=== PATIENT | female | born 1950 | race Caucasian/White ===

== ENCOUNTER → 2016-12-29 | Outpatient (CLI) | payer BC ==
[~2016-12-29] MED LIST: CALCTAB5 PO; CHOL100010 PO; GABA-113 PO; IBUP-1050 PO; MGN PO; MULT-513 PO; POTA20TA16 PO; [UNRECOGNIZED DRUG - OTHER]
== END | disposition home or self-care (01) ==
LOC: C.PAPS 15:51
PROVIDERS: ATTEND Obstetrics & Gynecology
DX: Z01.419 Encounter for gynecological examination (general) (routine) without abnormal findings (principal)

== ENCOUNTER → 2017-02-21 | Outpatient (CLI) | payer BC ==
[~2017-02-21] MED LIST changes: +CALC600T37 PO; +CHOL1000 PO
--- NOTE | 2017-02-21 15:32 | DIAGNOSTIC IMAGING REPORT ---
RIGHT HIP 2 VIEWS CLINICAL HISTORY: Right hip and buttock pain. FINDINGS: AP and frog-leg views of the right hip are obtained. No prior studies are available for comparison at the time of dictation. The skeletal structures are osteopenic. No fracture is seen in the right hip or the visualized right hemipelvis. There is only minimal arthritic change in the right hip. Sclerotic change is noted in the sacroiliac joints. The overlying soft tissues are within normal limits. Phleboliths are identified in the pelvis. IMPRESSION: Osteopenia and mild degenerative change as above. No acute bony abnormality is seen. Electronically signed by: Albaro Zhou M.D. 02/21/2017 3:30 PM Dictated Date/Time: 02/21/2017 3:29 PM
== END | disposition home or self-care (01) ==
LOC: C.RAD1850 15:20
PROVIDERS: ATTEND Physician Assistant
DX: M79.1 Myalgia (principal)

== ENCOUNTER → 2017-04-16 | Outpatient (CLI) | payer BC ==
--- NOTE | 2017-04-16 10:41 | DIAGNOSTIC IMAGING REPORT ---
LUMBAR SPINE MRI HISTORY: Back pain radiculopathy TECHNIQUE: Multiplanar multisequence MRI of the lumbar spine was performed without the use of contrast. COMPARISON: None. FINDINGS: For the purpose of the report the L5-S1 disc space will be located on axial image 27 of 30. Moderate degenerative disc change throughout the entire lumbar region. L1-L2: No significant central canal or neural foraminal narrowing. L2-L3: No significant central canal or neural foraminal narrowing. L3-L4: Moderate multifactorial spinal stenosis. Broad-based bulging disc. Hypertrophic change posterior elements. Moderate narrowing of the neuroforamina bilaterally. L4-L5: Mild multifactorial narrowing of the spinal canal. Mild narrowing right neuroforamina. L5-S1: Broad-based bulging disc. Minimal impact anterior thecal sac. Minimal narrowing neuroforamina bilaterally. IMPRESSION: 1. Moderate multifactorial spinal stenosis L3-L4. 2. Mild multifactorial spinal stenosis L4-L5. 3. Mild broad-based disc bulge L5-S1. Electronically signed by: Quintin Pedraza M.D. 04/16/2017 10:40 AM Dictated Date/Time: 04/16/2017 10:37 AM
== END | disposition home or self-care (01) ==
LOC: C.MRI 09:28
PROVIDERS: ATTEND Internal Medicine
DX: M54.30 Sciatica, unspecified side (principal); M99.73 Connective tissue and disc stenosis of intervertebral foramina of lumbar region

== ENCOUNTER → 2017-06-28 | Day surgery (SDC) | payer BC ==
[2017-06-01 15:03] VITALS: Ht 152.4 cm; Wt 58.2 kg
[~2017-06-28] VITALS: Ht 152.4 cm; Wt 58.2 kg
[~2017-06-28] MED LIST changes: +IOPAMIDOL INJ 61% 15 ML VIAL ONE; +LIDOCAINE HCL 1% MPF 5 ML VIAL ONE; -MGN PO; -POTA20TA16 PO; +SODIUM CHLORIDE 0.9% INJ 10 ML VIAL ONE
--- NOTE | 2017-06-28 14:06 | History & Physical Bridge - [place] ---
H&P Re-Evaluation Bridge Note: I have examined the patient, reviewed the History & Physical and in the interval since the performance of the History & Physical I have noted the following changes of clinical significance: No changes noted
[2017-06-28 14:33] VITALS: TEMP 36.6
--- NOTE | 2017-06-28 14:41 | Discharge Instructions ---
Discharge Instructions Date of Service Jun 28, 2017. Visit Reason for Visit: Lumbar Radiculopathy Discharge Discharge Diagnosis / Problem: right leg pain Discharge Goals Goal(s): Decrease discomfort, Improve function Medications Stopped Medications Name(s): ibuprofen stopped. last dose on sunday. Activity Recommendations Activity Limitations: resume your previous activity Anesthesia . Post Anesthesia Instructions: If you have had General Anesthesia or IV Sedation: * Do not drive today. * Resume driving when surgeon permits. * Do not make important decisions or sign legal documents today. * Call surgeon for: 1. Temperature elevations greater than 101 degrees F. 2. Uncontrollable pain. 3. Excessive bleeding. 4. Persistent nausea and vomiting. 5. Medication intolerance (nausea, vomiting or rash). * For nausea and vomiting use only clear liquids such as: tea, soda, bouillon until nausea subsides, then gradually increase diet as tolerated. * If you have any concerns or questions, call your surgeon's office. If physician is unavailable and it is an emergency, call 911 or go to the nearest emergency room. . Diet Recommendations Recommended Home Diet: resume previous diet Procedures Procedures Performed: LUMBAR EPIDURAL STEROID INJECTION Pending Studies Studies pending at discharge: no Medical Emergencies . Who to Call and When: Medical Emergencies: If at any time you feel your situation is an emergency, please call 911 immediately. . Non-Emergent Contact Non-Emergency issues call your: Specialist . . "Provider Documentation" section prepared by Darrius Florez. .
[2017-06-28 14:48] VITALS: BP 133/76; PULSE 69; O2SAT 96
--- NOTE | 2017-06-28 15:01 | OPERATIVE REPORT ---
DATE OF OPERATION: 06/28/2017 PREOPERATIVE DIAGNOSIS: Foraminal stenosis, L5-S1 with a right L5 radiculopathy. POSTOPERATIVE DIAGNOSIS: Same. PROCEDURE: Right paramedian L5-S1 intralaminar epidural steroid injection under fluoroscopic guidance. SURGEON: Dr. Darrius Florez. INDICATIONS: The patient is a 67-year-old white female who presents today for an epidural injection. She has had pain for a number of months since January following the classic right L5 dermatomal distribution that has not responded to physical therapy and oral steroids. She presents today for an epidural injection to provide her with relief as the pain is impacting upon her function. PHYSICAL EXAMINATION: Pleasant female seated comfortably in no apparent distress. She has some sensitivity to palpation of her right sciatic notch. Left was nontender. No limitations with forward flexion or extension. She demonstrated pain inhibition with straight leg testing of her right lower extremity and had intact sensation. CONSENT: Verbal and written consent was obtained from the patient. Risks and benefits were reviewed. Risks include but are not limited to lumbar epidural abscess, epidural hematoma, allergic reaction, dural puncture. The patient wishes to proceed. PROCEDURE: The patient was taken back to the special procedures room of [facility]. She was maintained in a prone position. Backside was cleansed with Betadine x3 and a dry sterile dressing was applied. Fluoroscope was used to identify the L5-S1 intralaminar space. Overlying skin on the right side was anesthetized with 4 mL of lidocaine 1% with a 25 gauge 1.5-inch needle. A 22-gauge 3-1/2 inch Tuohy needle was then directed down towards the intralaminar space. It was advanced under lateral fluoroscopic guidance and loss of resistance was noticed at a depth of 6.5 cm. Isovue-300 contrast 1 mL was injected in which demonstrated epidural uptake pattern which was confirmed and then she underwent injection after negative aspiration of 40 mg of Depo-Medrol and 4 mL of preservative free sodium chloride. Injection was well tolerated. DISPOSITION: 1. The patient is taken out into the discharge recovery area where she will be discharged home once discharge criteria have been met. 2. Follow up in the [facility] office in 2-4 weeks. I attest to the content of the Intraoperative Record and any orders documented therein. Any exception s are noted below.
== END | disposition home or self-care (01) ==
LOC: X.SURG 13:25
PROVIDERS: ATTEND Physical Medicine & Rehabilitation
DX: M48.07 Spinal stenosis, lumbosacral region (principal)

== ENCOUNTER → 2017-08-23 | Day surgery (SDC) | payer BC ==
[2017-08-07 14:00] VITALS: Ht 152.4 cm; Wt 58.2 kg
[~2017-08-23] VITALS: Ht 152.4 cm; Wt 58.2 kg
[~2017-08-23] MED LIST changes: -CALCTAB5 PO; -CHOL100010 PO; -GABA-113 PO
[2017-08-23 14:52] VITALS: TEMP 37.5
--- NOTE | 2017-08-23 14:56 | Discharge Instructions ---
Discharge Instructions Date of Service Aug 23, 2017. Visit Reason for Visit: Lumbar Radiculopathy Discharge Discharge Diagnosis / Problem: left leg pain Discharge Goals Goal(s): Decrease discomfort, Improve function Activity Recommendations Activity Limitations: resume your previous activity Anesthesia . Post Anesthesia Instructions: If you have had General Anesthesia or IV Sedation: * Do not drive today. * Resume driving when surgeon permits. * Do not make important decisions or sign legal documents today. * Call surgeon for: 1. Temperature elevations greater than 101 degrees F. 2. Uncontrollable pain. 3. Excessive bleeding. 4. Persistent nausea and vomiting. 5. Medication intolerance (nausea, vomiting or rash). * For nausea and vomiting use only clear liquids such as: tea, soda, bouillon until nausea subsides, then gradually increase diet as tolerated. * If you have any concerns or questions, call your surgeon's office. If physician is unavailable and it is an emergency, call 911 or go to the nearest emergency room. . Diet Recommendations Recommended Home Diet: resume previous diet Procedures Procedures Performed: LUMBAR EPIDURAL STEROID INJECTION Pending Studies Studies pending at discharge: no Medical Emergencies . Who to Call and When: Medical Emergencies: If at any time you feel your situation is an emergency, please call 911 immediately. . Non-Emergent Contact Non-Emergency issues call your: Specialist . . "Provider Documentation" section prepared by Darrius Florez. .
[2017-08-23 15:06] VITALS: BP 127/80; PULSE 65; O2SAT 96
--- NOTE | 2017-08-23 15:17 | OPERATIVE REPORT ---
DATE OF OPERATION: 08/23/2017 PREOPERATIVE DIAGNOSIS: Lumbar foraminal stenosis with a left L5 radiculopathy. POSTOPERATIVE DIAGNOSIS: Same. PROCEDURE: Left paramedian L5-S1 intralaminar epidural steroid injection under fluoroscopic guidance. INDICATIONS: The patient is a 67-year-old white female who underwent an epidural steroid injection and had about 30% relief. The idea to do a second injection to try to stack the effectiveness of the 2 injections together. She presents for an epidural injection to provide her with left L5 radiculopathy pain. PHYSICAL EXAMINATION: Pleasant female seated comfortably. She has some sensitivity to palpation of the sciatic notch, negative seated straight leg raises. No focal weakness. CONSENT: Verbal and written consent was obtained from the patient. Risks and benefits were reviewed. Risks include but are not limited to epidural abscess, epidural hematoma, allergic reaction, dural puncture. The patient wishes to proceed. DESCRIPTION OF PROCEDURE: The patient was taken back to the special procedures room of the [facility] where she was maintained in a prone position. Backside was cleansed with Betadine x3 and a dry sterile dressing was applied. Fluoroscope was used to identify the L5-S1 intralaminar space. Overlying skin on the left side was anesthetized with 4 mL of lidocaine 1% with a 25 gauge 1.5-inch needle. A 22-gauge 3-1/2 inch Tuohy needle was then directed down towards the intralaminar space. It was advanced under lateral fluoroscopic guidance and loss of resistance was noted at a depth of 5.5 cm. Isovue-300 contrast 1 mL was injected in which demonstrated epidural uptake pattern. She then after which was confirmed with both AP and lateral views. She then underwent injection after negative aspiration of 40 mg of Depo-Medrol and 4 mL of preservative free sodium chloride. Injection was well tolerated. DISPOSITION: 1. The patient is taken out into the discharge recovery area where she will be discharged home once discharge criteria have been met. 2. Follow up in the [facility] office in 2-4 weeks. I attest to the content of the Intraoperative Record and any orders documented therein. Any exception s are noted below.
== END | disposition home or self-care (01) ==
LOC: X.SURG 13:55
PROVIDERS: ATTEND Physical Medicine & Rehabilitation
DX: M48.061 Spinal stenosis, lumbar region without neurogenic claudication (principal); M54.16 Radiculopathy, lumbar region

== ENCOUNTER → 2017-12-25 | Outpatient (CLI) | payer BC ==
[~2017-12-25] MED LIST changes: +GABA-112 PO; -IOPAMIDOL INJ 61% 15 ML VIAL ONE; -LIDOCAINE HCL 1% MPF 5 ML VIAL ONE; -SODIUM CHLORIDE 0.9% INJ 10 ML VIAL ONE
== END | disposition home or self-care (01) ==
LOC: C.LAB1850 10:37
PROVIDERS: ATTEND Internal Medicine
DX: R35.0 Frequency of micturition (principal); R39.11 Hesitancy of micturition; R30.9 Painful micturition, unspecified

== ENCOUNTER → 2018-01-08 | Outpatient (CLI) | payer BC ==
[2018-01-08 17:45] LABS: INFLUENZA B ANTIGEN Neg for Influ B (NEG)
== END | disposition home or self-care (01) ==
LOC: C.LAB1850 16:31
PROVIDERS: ATTEND Internal Medicine
DX: J11.1 Influenza due to unidentified influenza virus with other respiratory manifestations (principal)

== ENCOUNTER → 2018-01-10 | Day surgery (SDC) | payer BC ==
[2017-12-21 09:52] VITALS: Ht 152.4 cm; Wt 58.2 kg
[~2018-01-10] VITALS: Ht 152.4 cm; Wt 58.2 kg
== END | disposition home or self-care (01) ==
LOC: EDSTATUS 15:30 → C.PAT 16:08
PROVIDERS: ATTEND Physical Medicine & Rehabilitation
DX: M54.16 Radiculopathy, lumbar region (principal); Z53.9 Procedure and treatment not carried out, unspecified reason

== ENCOUNTER → 2018-01-18 | Outpatient (CLI) | payer BC ==
--- NOTE | 2018-01-18 14:30 | DIAGNOSTIC IMAGING REPORT ---
LUMBAR SPINE 2 OR 3 VIEWS CLINICAL HISTORY: DEGENERATIVE LUMBAR SPINAL STENOSIS pain. Neuropathy. COMPARISON STUDY: None FINDINGS: Normal alignment of the vertebral bodies. Minimal degenerative change of vertebral endplates and posterior elements. No evidence for compression deformity. No evidence for subluxation. IMPRESSION: Minimal degenerative change, primarily of the posterior elements. No acute process. The above report was generated using voice recognition software. It may contain grammatical, syntax or spelling errors. Electronically signed by: Quintin Pedraza M.D. 01/18/2018 2:28 PM Dictated Date/Time: 01/18/2018 2:26 PM
== END | disposition home or self-care (01) ==
LOC: C.RDSM 18:41
PROVIDERS: ATTEND Orthopaedic Surgery
DX: M54.16 Radiculopathy, lumbar region (principal); M48.061 Spinal stenosis, lumbar region without neurogenic claudication

== ENCOUNTER → 2018-01-25 | Outpatient (CLI) | payer BC ==
--- NOTE | 2018-01-25 17:08 | DIAGNOSTIC IMAGING REPORT ---
MRI OF THE LUMBAR SPINE WITHOUT IV CONTRAST CLINICAL HISTORY: Chronic low back pain. Right lower extremity radiculopathy. COMPARISON STUDY: MRI of lumbar spine dated 04/16/2017. TECHNIQUE: MRI of the lumbar spine is performed utilizing various T1 and T2-weighted sequences in the axial and sagittal planes. IV contrast was not administered for this examination. FINDINGS: Lumbar spine: Vertebral body height and alignment are maintained throughout the lumbar spine. Normal marrow signal intensity is preserved of the visualized osseous structures. There is no evidence of spondylolysis. The transverse and spinous processes appear intact. No destructive bony lesion is seen. Intervertebral discs: Mild degenerative disc desiccation is seen throughout the lumbar spine. Minimal loss of height is noted at L3-L4. The disc spaces are otherwise preserved. Spinal cord: The visualized spinal cord is normal in morphology and signal intensity. The conus medullaris terminates at the level of L1. The nerve roots of the cauda equina are normal in morphology. L1-L2: Unremarkable. L2-L3: Unremarkable. L3-L4: There is broad-based posterior disc bulge with annular fissure. In conjunction with hypertrophy of the ligamentum flavum, this causes [id number] central canal stenosis with a minimum AP diameter of 9 mm. There is bilateral subarticular stenosis. The disc bulge likely impinges on the exiting bilateral L3 nerve roots as well as the transiting bilateral L4 nerve roots. L4-L5: There is minimal posterior disc bulge. No significant acquired compromise of the central canal is identified. The disc bulge likely abuts the transiting bilateral nerve roots. The neural foramina are patent. Facet arthropathy is of no consequence. L5-S1: There is minimal posterior disc bulge. The central canal is patent. Facet arthropathy causes mild bilateral neural foraminal stenosis. There is bilateral subarticular stenosis. This may abut the exiting left L5 nerve root. Sacrum: The visualized sacrum is normal in morphology and signal intensity. Soft tissues: The paraspinous soft tissues are within normal limits. The partially imaged retroperitoneal structures are grossly unremarkable but incompletely evaluated. IMPRESSION: 1. Lumbosacral spondylosis as above with acquired compromise of the central canal at L3-L4. This is similar in appearance to the 04/16/2017 examination. 2. Mild spondylotic changes at additional levels as discussed above. See discussion for detailed level of analysis. 3. No osseous abnormality is identified. Dictated: 01/25/2018 4:42 PM Transcribed: 01/25/2018 5:08 PM [email or web address] Electronically signed by: Albaro Zhou M.D. 01/25/2018 5:21 PM Dictated Date/Time: 01/25/2018 4:42 PM
== END | disposition home or self-care (01) ==
LOC: C.MRI 15:49
PROVIDERS: ATTEND Orthopaedic Surgery
DX: M48.061 Spinal stenosis, lumbar region without neurogenic claudication (principal); M47.27 Other spondylosis with radiculopathy, lumbosacral region